=== PATIENT | male | born 1980 | race Caucasian/White ===

== ENCOUNTER 2022-06-15 13:57 | Emergency (ER) | payer BC ==
[2022-06-15 15:48] LABS: ESTIMATED GFR 110 mL/min (>60)
[2022-06-15 16:36] LABS: CORONAVIRUS COVID-19 NAA NEGATIVE (NEGATIVE)
== END 2022-06-15 18:38 | disposition home or self-care (01) ==
LOC: JD.ED 13:57
DX: M94.0 Chondrocostal junction syndrome [Tietze] (principal); Z88.1 Allergy status to other antibiotic agents; Z88.2 Allergy status to sulfonamides; Z20.822 Contact with and (suspected) exposure to COVID-19
CPT/HCPCS: 0241U; 36415; 71046; 80053; 84484; 85025; 85379; 93005; 99285